=== PATIENT | female | born 2000 | race Two or more races ===

== ENCOUNTER 2021-05-15 05:35 | Emergency (ER) | payer SELFPAY ==
[~2021-05-15] VITALS: Ht 162.6 cm; Wt 68.0 kg
== END 2021-05-15 05:52 | disposition left against medical advice (07) ==
LOC: ER 05:35
DX: E86.0 Dehydration (principal); F15.10 Other stimulant abuse, uncomplicated

== ENCOUNTER 2022-11-03 00:27 | Emergency (ER) | payer MEDICAID ==
[~2022-11-03] VITALS: Ht 152.4 cm; Wt 59.0 kg
[2022-11-03 02:50] VITALS: BP 137/103
[2022-11-03] MEDS ORDERED: DOXY-338 PO (04:38)
[2022-11-03] MEDS ORDERED: cefTRIAXone SOD 500 MG VL IM ONE (04:45)
[2022-11-04 07:06] LABS: RPR Non Reactive (Non Reactive)
== END 2022-11-03 06:10 | disposition home or self-care (01) ==
LOC: ER 00:27
DX: R59.1 Generalized enlarged lymph nodes (principal); K62.89 Other specified diseases of anus and rectum; Z20.2 Contact with and (suspected) exposure to infections with a predominantly sexual mode of transmission
CPT/HCPCS: 86592; 86703; 96372; 99283; J0696

== ENCOUNTER 2023-04-06 12:54 | Emergency (ER) | payer SELFPAY ==
[~2023-04-06] VITALS: Ht 152.4 cm; Wt 59.0 kg
[~2023-04-06 12:54] MED LIST: CEPH-322 PO; DOXY-338 PO
[2023-04-06 13:00] VITALS: BP 118/72
[2023-04-06] MEDS ORDERED: EPINEPHrine HCL 1 MG/1 ML AMP SC ONE (15:00)
[2023-04-06] MEDS ORDERED: DexAMETHasone SOD PHOS 10MG/1ML VIAL INJ IV ONE (15:00)
[2023-04-06] MEDS ORDERED: TRIA0.02 TOP (15:20)
[2023-04-06] MEDS ORDERED: METH4PAK PO (15:20)
== END 2023-04-06 15:53 | disposition home or self-care (01) ==
LOC: EDUNIT# 12:54 → ER 12:54 → EDBD 12:54 → ER 15:46
DX: T78.40XA Allergy, unspecified, initial encounter (principal); X58.XXXA Exposure to other specified factors, initial encounter
CPT/HCPCS: 96372; 96374; 99283; J0171; J1100

== ENCOUNTER 2023-04-17 23:28 | Emergency (ER) | payer SELFPAY ==
[~2023-04-17] VITALS: Ht 152.4 cm; Wt 60.0 kg
[~2023-04-17 23:28] MED LIST changes: -CEPH-322 PO; +CEPH250C PO; -DOXY-338 PO; +DOXY-447 PO; +METH4PAK PO; +TRIA0.02 TOP
[2023-04-18 01:32] VITALS: BP 133/94
[2023-04-18] MEDS ORDERED: methylPREDNISolone SOD SUCC 40 MG/ML VL IM ONE (01:45)
[2023-04-18] MEDS ORDERED: diphenhdrAMINE HCL 50 MG/1 ML VL IM ONE (01:45)
[2023-04-18] MEDS ORDERED: PRED20TA2 PO (01:47)
[2023-04-18] MEDS ORDERED: DIPH25CA66 PO (01:47)
== END 2023-04-18 02:26 | disposition home or self-care (01) ==
LOC: EDBD 23:28 → ER 23:28
DX: T78.40XA Allergy, unspecified, initial encounter (principal); Z91.010 Allergy to peanuts; X58.XXXA Exposure to other specified factors, initial encounter
CPT/HCPCS: 96372; 99284; J1200; J2920